=== PATIENT | female | born 1965 | race Caucasian/White ===

== ENCOUNTER 2017-12-05 10:13 | Inpatient (IN) | payer BC ==
[~2017-12-05] VITALS: Ht 157.5 cm; Wt 91.6 kg
[2017-12-05 10:23] VITALS: BP 158/77
[2017-12-05] MEDS ORDERED: METF500T PO (10:29)
[2017-12-05] MEDS ORDERED: METR250T2 PO (10:29)
[2017-12-05] MEDS ORDERED: CIPR500T4 PO (10:29)
[2017-12-05] MEDS ORDERED: LEVO0.1331 PO (10:29)
--- NOTE | 2017-12-05 10:30 | NUR ---
52F BIB FAMILY C/O LLQ PAIN, PRESSURE/THROBBING, RADIATES TO LEFT BUTTOCKS, 05/03 X 4 DAYS; PT STATES WAS SEEN AT [facility]RGENT [facility]ARE WEDNESDAY, DX WITH DIVERTICULUTIS, TAKING FLAGYL 500MG AND CIPRO, BUT PATIENT STATES PAIN HAS NOT IMPROVED; PT C/O DIARRHEA SINCE WEDNESDAY, WITH ONE EPISODE OF DIARRHEA TODAY, BUT STATES NO NAUSEA OR VOMITING AT THIS TIME; ABDOMEN SOFT, NON-TENDER, ACTIVE BOWEL SOUNDS X 4 QUADRANTS; PT AA&OX4, BL LUNG SOUNDS CLEAR, RR EVEN/UNLABORED, SKIN IS WARM/DRY/INTACT WITH EVEN AND STEADY GAIT; PT RESTING IN BED WITH HOB ELEVATED AND IN LOWEST POSITION; POSITIONED FOR COMFORT; ER MD MADE AWARE OF STATUS. WILL CONTINUE TO MONITOR.
[2017-12-05] MEDS ORDERED: NACL 0.9% 1,000 ML IV ONE ×2 (10:31→12:15)
[2017-12-05] MEDS ORDERED: ONDANSETRON 4 MG/2 ML VIAL IVP ONE (10:35)
[2017-12-05] MEDS ORDERED: MORPHINE SULFATE 4 MG/ML SYR IVP ONE (10:35)
--- NOTE | 2017-12-05 10:37 | NUR ---
ER MD DR. CALLAWAY EVALUATING PT AT BEDSIDE.
[2017-12-05 10:51] LABS: BASOPHILS # (AUTO) 0.3 K/uL (0.00-0.22); BASOPHILS % (AUTO) 1.7 % (0.0-2.0); EOSINOPHILS # (AUTO) 0.4 K/uL (0-0.4); EOSINOPHILS % (AUTO) 2.3 % (0.0-4.0); HEMATOCRIT 42.9 % (36-48); HEMOGLOBIN 14.1 g/dL (12.0-16.0); LYMPHOCYTES # (AUTO) 1.6 K/uL (2.5-16.5); LYMPHOCYTES % (AUTO) 10.5 % (20.5-51.1); MEAN CORPUSCULAR HEMOGLOBIN 29 pg (27-31); MEAN CORPUSCULAR HGB CONC 33 g/dL (33-37); MEAN CORPUSCULAR VOLUME 89 fL (80-94); MONOCYTES # (AUTO) 0.4 K/uL (0.8-1.0); MONOCYTES % (AUTO) 2.6 % (1.7-9.3); NEUTROPHILS # (AUTO) 12.8 K/uL (1.8-7.7); NEUTROPHILS % (AUTO) 82.9 % (42.2-75.2); PLATELET COUNT (AUTO) 467 K/uL (140-450); RED BLOOD CELL COUNT(AUTO) 4.82 MIL/uL (4.20-5.40); RED CELL DISTRIBUTION WIDTH 12.5 % (11.6-13.7); WHITE BLOOD COUNT (AUTO) 15.5 K/uL (4.8-10.8)
[2017-12-05 10:51] LABS: APPEARANCE,URINE HAZY (CLEAR); BILIRUBIN,URINE NEGATIVE (NEGATIVE); BLOOD, URINE NEGATIVE (NEGATIVE); COLOR,URINE YELLOW (YELLOW); LEUKOCYTE ESTERASE ,URINE TRACE (NEGATIVE); NITRITE, URINE NEGATIVE (NEGATIVE); UGLUCOSE NEGATIVE (NEGATIVE)
[2017-12-05 11:02] LABS: ANION GAP 16.1 (8-16); CARBON DIOXIDE 25.6 mmol/L (21-32); CREATININE 0.8 mg/dL (0.6-1.3); POTASSIUM 3.7 mmol/L (3.5-5.1)
[2017-12-05 11:08] LABS: ALBUMIN 3.4 g/dL (3.4-5.0); TOTAL BILIRUBIN 0.3 mg/dL (0.0-1.0)
[2017-12-05 11:09] LABS: RBC,URINE 0-5 (RARE) /HPF (0-5); WBC,URINE 0-5 (RARE) /HPF (0-5)
--- NOTE | 2017-12-05 11:25 | NUR ---
PT APPEARS TO BE RESTING COMFORTABLY IN BED; RR EVEN/UNLABORED; POSITIONED FOR COMFORT; FAMILY AT BEDSIDE; WILL CONTINUE TO MONITOR.
[2017-12-05] MEDS ORDERED: KETOROLAC 30 MG/ML VIAL IVP ONE (11:35)
[2017-12-05] MEDS ORDERED: LEVOFLOXACIN 750 MG/D5W PREMIX 150 ML IV ONE (12:15)
[2017-12-05] MEDS ORDERED: metroNIDAZOLE 500 MG/NS PREMIX 100 ML IV ONE (12:15)
--- NOTE | 2017-12-05 12:18 | NUR ---
Dr. Sutherland re-evaluating patient at bedside.
[2017-12-05] MEDS ORDERED: NACL 0.9% 1,000 ML IV SCH (12:27)
[2017-12-05] MEDS ORDERED: DOCUSATE SODIUM 100 MG GELCAP PO PRN (12:30)
[2017-12-05] MEDS ORDERED: ONDANSETRON 4 MG/2 ML VIAL IM/IVP PRN (12:30)
--- NOTE | 2017-12-05 12:57 | NUR ---
Dr. Chopra evaluating patient at bedside.
--- NOTE | 2017-12-05 13:00 | NUR ---
Patient will be admitted to care of DR. VILLAFANA. Admited to TELEMETRY. Will go to room 112B. Belongings list completed. Report to MALLY RN AT BEDSIDE. INFORMED MALLY OF MEDICATIONS STILL PENDING FROM ER.
[2017-12-05] MEDS ORDERED: DEXTROSE 50% 50 ML SYR IVP PRN (13:10)
--- NOTE | 2017-12-05 13:30 | NUR ---
RECEIVED PT REPORT FROM ER NURSE. PT IS AMBULATORY, PT IS AAOX4. NO S/S OF ACUTE DISTRESS ON ROOM AIR. IV NOTED ON THE RT AC 20G, PATENT, INTACT AND WITH IV ABX INFUSING WELL. SKIN INTACT. STATES TOLERABLE ABD PAIN OF 3/10, PT STATED SHE HAD DIARRHEA SINCE WED 12/01/17, ABOUT THREE TIMES A DAY. MRSA SCREENING DONE. PATIENT WAS DISCUSSED POC FOR TODAY, PATIENT VERBALIZED UNDERSTANDING. ORIENTED PT TO HOSPITAL ENVIRONMENT, CALL LIGHT WITHIN REACH. BED IN LOW POSITION.
[2017-12-05] MEDS: DEXT 5% / NACL 0.45% 1,000 ML IV SCH ×3 (13:34→23:47)
--- NOTE | 2017-12-05 13:52 | NUR ---
SPOKE WITH LAURO FROM LAB, STATED THAT PT STILL HAS ENOUGH URINE FROM ED TO RUN FOR UDS.
[2017-12-05 14:27] LABS: BARBITURATE, URINE NEG. ng/ml (NEG <=200); BENZODIAZEPINE, URINE NEG. ng/mL (NEG <=200); CANNABINOID, URINE NEG. ng/mL (NEG <=50); COCAINE, URINE NEG. ng/mL (NEG <=300); OPIATE, URINE NEG. ng/mL (NEG <=2000); PHENCYCLIDINE SCREEN,URINE NEG. ng/mL (NEG <=25)
[2017-12-05 14:36] LABS: CHOL/HDL RATIO 3.7 (1-4.5); FREE T4 (FREE THYROXINE) 1.32 ng/dL (0.76-1.46); MAGNESIUM 1.9 mg/dL (1.8-2.4); PHOSPHORUS 2.8 mg/dL (2.5-4.9); THYROID STIMULATING HORMONE 1.31 uIU/mL (0.34-3.74)
[2017-12-05 14:43] VITALS: BP 152/91
--- NOTE | 2017-12-05 14:50 | NUR ---
DR MAHER HAS SEEN THE PT. MIGHT CONSIDER SX ON , DEPENDS ON PT'S CONDITION.
[2017-12-05 16:00] VITALS: BP 142/83
--- NOTE | 2017-12-05 16:00 | NUR ---
DENIES PAIN AT THIS TIME. BLOOD SUGAR CHECK 114
[2017-12-05] MEDS: BLOOD GLUCOSE MONITORING 1 DEV DEV FS SCH ×2 (16:30→20:31)
[2017-12-05] MEDS ORDERED: metFORMIN 500 MG TAB PO SCH (17:00)
--- NOTE | 2017-12-05 19:30 | NUR ---
ENDORSE PT TO FACTORY HAND RN. PT IN STABLE CONDITION.
--- NOTE | 2017-12-05 19:30 | NUR ---
RECEIVED PT AWAKE TALKING ON THE PHONE, VITAL SIGNS STABLE, TOLERABLE ABDOMINAL PAIN 3/10, ENCOURAGE TO CALL WHEN PAIN GET WORST, MAINTAINED ON NPO, IVF INFUSING WELL, PLAN OF CARE DISCUSSED, SAFETY MEASURES IN PLACE, CALL LIGHT WITHIN REACH.
[2017-12-05 20:00] VITALS: BP 114/87
[2017-12-05] MEDS ORDERED: PIPERACILLIN/TAZOBACTAM 3.375 GM VIAL IV ONE (20:01)
[2017-12-05] MEDS: PIPER/TAZO 3.375GM/D5W PREMIX 50 ML IV SCH (20:07)
[2017-12-05] MEDS: MORPHINE SULFATE 2 MG/ML SYR IVP PRN ×2 (20:27→23:40)
--- NOTE | 2017-12-05 21:00 | NUR ---
BLOOD SUGAR CHECKED WITH 143 RESULT, DUE IV ANTIBIOTIC INFUSING WELL, ALL NEEDS ATTENDED.
[2017-12-05] MEDS: metroNIDAZOLE 500 MG/NS PREMIX 100 ML IV SCH (21:09)
[2017-12-06] VITALS: BP 142/80
[2017-12-06] MEDS: ACETAMINOPHEN 325 MG TAB PO PRN (00:47)
--- NOTE | 2017-12-06 01:00 | NUR ---
PT STILL AWAKE, OFFERED TO GET AN ORDER FOR SLEEPING PILL BUT PT REFUSED, COMPLAINING OF HEADACHE, TYLENOL PO GIVEN WITH SIP OF WATER, MONITORED CLOSELY.
[2017-12-06 04:00] VITALS: BP 125/75
[2017-12-06] MEDS ORDERED: PIPERACILLIN/TAZOBACTAM 3.375 GM VIAL IV ONE (04:13)
[2017-12-06] MEDS: PIPER/TAZO 3.375GM/D5W PREMIX 50 ML IV SCH ×3 (04:32→21:00)
[2017-12-06] MEDS: DEXT 5% / NACL 0.45% 1,000 ML IV SCH ×3 (05:15→21:46)
[2017-12-06] MEDS: metroNIDAZOLE 500 MG/NS PREMIX 100 ML IV SCH ×3 (05:21→21:51)
--- NOTE | 2017-12-06 05:40 | NUR ---
AM LABS DRAWN, BLOOD SUGAR CHECKED WITH 145 RESULT, IVF OF D5 1/2 NS AT 125 ML/H ON-GOING.
[2017-12-06 06:21] LABS: BASOPHILS # (AUTO) 0.5 K/uL (0.00-0.22); BASOPHILS % (AUTO) 3.3 % (0.0-2.0); EOSINOPHILS # (AUTO) 0.3 K/uL (0-0.4); EOSINOPHILS % (AUTO) 2.1 % (0.0-4.0); HEMATOCRIT 37.9 % (36-48); HEMOGLOBIN 12.5 g/dL (12.0-16.0); LYMPHOCYTES # (AUTO) 1.7 K/uL (2.5-16.5); LYMPHOCYTES % (AUTO) 12.2 % (20.5-51.1); MEAN CORPUSCULAR HEMOGLOBIN 30 pg (27-31); MEAN CORPUSCULAR HGB CONC 33 g/dL (33-37); MEAN CORPUSCULAR VOLUME 90 fL (80-94); MONOCYTES # (AUTO) 0.8 K/uL (0.8-1.0); MONOCYTES % (AUTO) 5.5 % (1.7-9.3); NEUTROPHILS # (AUTO) 10.5 K/uL (1.8-7.7); NEUTROPHILS % (AUTO) 76.9 % (42.2-75.2); PLATELET COUNT (AUTO) 398 K/uL (140-450); RED BLOOD CELL COUNT(AUTO) 4.23 MIL/uL (4.20-5.40); RED CELL DISTRIBUTION WIDTH 12.4 % (11.6-13.7)
[2017-12-06] MEDS: LEVOTHYROXINE 0.112 MG, LEVOTHYROXINE 0.025 MG PO SCH ×2 (06:21)
--- NOTE | 2017-12-06 06:25 | NUR ---
DUE PO SYNTHROID GIVEN WITH SIP OF WATER, TOLERABLE PAIN AT THIS TIME 01/01, NO EPISODE OD DIARRHEA NOTED, IVF INFUSING WELL, MONITORED CLOSELY.
[2017-12-06] MEDS: BLOOD GLUCOSE MONITORING 1 DEV DEV FS SCH ×4 (06:37→20:58)
[2017-12-06 06:58] LABS: ANION GAP 11.5 (8-16); CARBON DIOXIDE 28.1 mmol/L (21-32); CREATININE 0.7 mg/dL (0.6-1.3); POTASSIUM 3.6 mmol/L (3.5-5.1)
[2017-12-06 07:11] LABS: MAGNESIUM 1.8 mg/dL (1.8-2.4); PHOSPHORUS 3.2 mg/dL (2.5-4.9)
[2017-12-06 07:12] LABS: WHITE BLOOD COUNT (AUTO) 13.8 K/uL (4.8-10.8)
--- NOTE | 2017-12-06 07:20 | NUR ---
RECEIVED PATIENT REPORT AT BEDSIDE FROM NIGHTSHIFT NURSE. PATIENT IS WAKING UP AT THIS TIME. PATIENT IS A&OX4. PATIENT DOES NOT COMPLAIN OF ANY PAIN AT THIS TIME. PATIENT IS IN SEMI-FOWLERS POSITION. UPDATED BOARD AND LOWERED BED. INSTRUCTED PATIENT TO CALL IF SHE NEEDS HELP WITH TOILETING. WILL CONTINUE TO MONITOR PATIENT.
--- NOTE | 2017-12-06 07:30 | NUR ---
PT AWAKE, NO SIGNS OF DISTRESS, REPORT GIVEN TO AGNES VELÁSQUEZ FOR CONTINUITY OF CARE.
[2017-12-06 08:00] VITALS: BP 153/81
[2017-12-06] MEDS ORDERED: NON-FORMULARY ITEM (Levothyroxine Sodium* (Synthroid*) 0.137 MG) PO SCH (09:00)
[2017-12-06] MEDS ORDERED: LEVOFLOXACIN 750 MG/D5W PREMIX 150 ML IV SCH (09:00)
--- NOTE | 2017-12-06 09:10 | NUR ---
PATIENT HAS BEEN SCREENED AND CATEGORIZED HIGH NUTRITION RISK. PATIENT WILL BE SEEN WITHIN 1-2 DAYS OF ADMISSION. 12/05/18-12/06/[address]
[2017-12-06] MEDS: LACTOBACILLUS RHAMNOSUS GG 1 EACH CAP PO SCH (09:36)
[2017-12-06 10:38] LABS: PROTHROMBIN TIME 10.1 secs (10.8-13.4)
--- NOTE | 2017-12-06 11:30 | NUR ---
PATIENT IS AWAKE WATCHING TELEVISION. PATIENT DOES NOT COMPLAIN OF PAIN. WILL CONTINUE TO MONITOR PATIENT.
--- NOTE | 2017-12-06 11:52 | NUR ---
CM NOTE PER RN SOCIAL WORK BROWN, SHE SPOKE WITH SIERRA OF [facility]# [phone] WHO SAID THERE IS NO ASSIGNED CARD GRADER YET BUT TO SEND REVIEWS TO [phone], REF# [id number]. INITIAL REVIEW FAXED TO [facility] [phone] # [phone].
[2017-12-06 12:57] VITALS: BP 166/89
[2017-12-06] MEDS: HYDROcodone/APAP 7.5/325 MG 1 TAB PO PRN ×2 (12:57→19:38)
--- NOTE | 2017-12-06 13:00 | NUR ---
PATIENT IS ON THE PHONE AT THIS TIME. PATIENT DOES NOT COMPLAIN OF PAIN. PATIENT SHOWS NO SIGNS OF RESPIRATORY DISTRESS OR RESPIRATORY DEPRESSION. WILL CONTINUE TO MONITOR PATIENT.
[2017-12-06] MEDS: INSULIN LISPRO SLIDING SCALE 100 UNITS/ML VIAL SUBQ PRN (13:03)
[2017-12-06] MEDS ORDERED: ENALAPRILAT 2.5 MG/2 ML VIAL IVP SCH (13:19)
--- NOTE | 2017-12-06 15:25 | NUR ---
PATIENT BLOOD PRESSURE IS 166/89, [address] DIAL IS AWARE OF PATIENT'S CONDITION. AWAITING DR'S ORDERS.
--- NOTE | 2017-12-06 15:47 | NUR ---
12/06/2017 RD INITIAL ASSESSMENT COMPLETED PLEASE REFER TO NUTRITION ASSESSMENT UNDER CARE ACTIVITY FOR ESTIMATED NUTRITIONAL NEEDS. CONTINUE NPO MEDICALLY APPROPRIATE ADVANCE DIET TOLERATED TO CCHO 60 GM ONCE PT ABLE TO TOLERATE PO INTAKE RD TO FOLLOW-UP IN 2-3 DAYS PATIENT IS HIGH RISK. [address], RD
[2017-12-06 16:00] VITALS: BP 138/78
--- NOTE | 2017-12-06 19:20 | NUR ---
GAVE REPORT TO NIGHTSHIFT NURSE AT BEDSIDE. PATIENT IS IN STABLE CONDITION.
--- NOTE | 2017-12-06 19:21 | NUR ---
PATIENT REPORT RECEIVED FROM MORNING NURSE AT BEDSIDE. PATIENT IS AWAKE, ALERT AND ORIENTED. NO SIGNS AND SYMPTOMS OF DISTRESS NOTED. PATIENT COMPLAINS OF 6/10 ABDOMINAL PAIN. WILL MEDICATE ORDERED. IV SITE NOTED ON RIGHT AC, IVF INFUSING WELL. PLAN OF CARE DISCUSSED WITH PATIENT. PATIENT VERBALIZED UNDERSTANDING. BED IN LOWEST POSITION, SIDE RAILS UP AND CALL LIGHT WITHIN REACH. WILL CONTINUE TO MONITOR.
--- NOTE | 2017-12-06 20:30 | NUR ---
PATIENT ASKING WEATHER SHE IS GETTING A PROCEDURE DONE TOMORROW. SPOKE TO DR. VELAZCO. DR. VELAZCO WENT TO GO AND SPEAK TO THE PATIENT. Addendum: 12/07/17 at 0141 by No Martinez RN *WHETHER
--- NOTE | 2017-12-06 21:30 | NUR ---
MEDICATION EDUCATION GIVEN. PATIENT VERBALIZED UNDERSTANDING. ADMINISTERED SCHEDULED MEDICATION ORDERED. WILL CONTINUE TO MONITOR.
--- NOTE | 2017-12-06 23:00 | NUR ---
CHECKED ON PATIENT. PATIENT IS ASLEEP. NO SIGNS AND SYMPTOMS OF DISTRESS NOTED. BREATHING EVEN AND UNLABORED. WILL CONTINUE TO MONITOR.
--- NOTE | 2017-12-07 01:40 | NUR ---
CHECKED ON PATIENT. PATIENT IS ASLEEP. NO SIGNS AND SYMPTOMS OF DISTRESS NOTED. BREATHING EVEN AND UNLABORED. WILL CONTINUE TO MONITOR.
[2017-12-07 04:00] VITALS: BP 127/85
[2017-12-07] MEDS: PIPER/TAZO 3.375GM/D5W PREMIX 50 ML IV SCH (04:00)
[2017-12-07] MEDS: HYDROcodone/APAP 7.5/325 MG 1 TAB PO PRN ×2 (04:33→20:42)
[2017-12-07] MEDS: DEXT 5% / NACL 0.45% 1,000 ML IV SCH ×3 (05:15→22:13)
[2017-12-07] MEDS: metroNIDAZOLE 500 MG/NS PREMIX 100 ML IV SCH ×3 (05:46→20:41)
[2017-12-07] MEDS: LEVOTHYROXINE 0.112 MG, LEVOTHYROXINE 0.025 MG PO SCH ×2 (05:49)
[2017-12-07] MEDS: INSULIN LISPRO SLIDING SCALE 100 UNITS/ML VIAL SUBQ PRN ×2 (06:17→20:53)
[2017-12-07 06:21] LABS: T4 (THYROXINE) 10.6 ug/dL (4.5-12.0)
[2017-12-07 06:30] LABS: HEMATOCRIT 37.1 % (36-48); HEMOGLOBIN 12.3 g/dL (12.0-16.0); MEAN CORPUSCULAR HEMOGLOBIN 30 pg (27-31); MEAN CORPUSCULAR HGB CONC 33 g/dL (33-37); MEAN CORPUSCULAR VOLUME 90 fL (80-94); PLATELET COUNT (AUTO) 428 K/uL (140-450); RED BLOOD CELL COUNT(AUTO) 4.14 MIL/uL (4.20-5.40); RED CELL DISTRIBUTION WIDTH 12.6 % (11.6-13.7); WHITE BLOOD COUNT (AUTO) 14.8 K/uL (4.8-10.8)
[2017-12-07 07:08] LABS: EOSINOPHILS % (MANUAL) 3 % (0-4); LYMPHOCYTES % (MANUAL) 20 % (20-46); MONOCYTES % (MANUAL) 7 % (5-12)
--- NOTE | 2017-12-07 07:10 | NUR ---
PATIENT REPORT GIVEN TO MORNING NURSE FOR CONTINUITY OF CARE. PATIENT IS IN STABLE CONDITION.
--- NOTE | 2017-12-07 07:11 | NUR ---
RECEIVED REPORT FROM SLUBBER FRAME CHANGER RN. PATIENT IS AAOX4, NO SIGNS AND SYMPTOMS OF ACUTE DISTRESS NOTED AT THIS TIME. PATIENT IV TO THE RIGHT AC 20G, INFUSING D5 1/2 NS AT 125 ML/HR. SITE IS CLEAN DRY PATENT AND INTACT. DISCUSSED PLAN OF CARE WITH PATIENT AND SHE VERBALIZED UNDERSTANDING. BED IN LOWEST POSITION, SIDE RAILS UP X2, CALL LIGHT PLACED WITHIN REACH. WILL CONTINUE TO MONITOR.
[2017-12-07] MEDS: BLOOD GLUCOSE MONITORING 1 DEV DEV FS SCH ×5 (07:30→21:24)
[2017-12-07 07:50] LABS: CARBON DIOXIDE 26.4 mmol/L (21-32); CREATININE 0.7 mg/dL (0.6-1.3); POTASSIUM 3.4 mmol/L (3.5-5.1)
[2017-12-07 07:58] LABS: MAGNESIUM 2.1 mg/dL (1.8-2.4); PHOSPHORUS 3.3 mg/dL (2.5-4.9)
[2017-12-07 08:00] VITALS: BP 140/83
--- NOTE | 2017-12-07 09:01 | NUR ---
CM NOTE CONCURRENT REVIEW FAXED TO [facility] [phone] # [phone]. Addendum: 12/07/17 at 0920 by Leah Henriquez CM PER K[place] OF [facility]# [phone] OPTION 5, THE DINKEY ENGINE FIRER IS AUDIE Cain BUT THEY CANNOT PROVIDE HER CONTACT NUMBER BUT TO SEND REVIEWS TO FAX# [phone]. Addendum: 12/07/17 at 1421 by Leah Henriquez CM RECEIVED CALL FROM VALENTIN Cain AND SHE SAID SHE IS THE ASSIGNED DINKEY ENGINE FIRER AND HER CONTACT # [phone] FAX# [phone]
[2017-12-07] MEDS: LACTOBACILLUS RHAMNOSUS GG 1 EACH CAP PO SCH (09:11)
[2017-12-07] MEDS: LISINOPRIL 10 MG TAB PO SCH (09:12)
[2017-12-07] MEDS: LEVOFLOXACIN 750 MG/D5W PREMIX 150 ML IV SCH (12:00)
--- NOTE | 2017-12-07 13:30 | NUR ---
DR ZAYAS IN THE ROOM TALKING WITH PATIENT AND HER . HER HAD A LOT OF QUESTIONS.
[2017-12-07] MEDS: ACETAMINOPHEN 325 MG TAB PO PRN (14:56)
--- NOTE | 2017-12-07 15:30 | NUR ---
RECEIVED REPORT FROM AGNES ORTEGA. PT IS AWAKE AND ORIENTED. INTRODUCED MYSELF AND UPDATED THE BOARD. SHE WANTED HER LINENS CHANGED. PT BACK IN BED COMFORTABLE AND ABX INFUSING. WILL CONTINUE TO MONITOR PT.
--- NOTE | 2017-12-07 18:25 | NUR ---
PT RESTING COMFORTABLY. ATE DINNER, WATCHING TV. NO SIGNS OF DISTRESS. WILL CONTINUE TO MONITOR PT.
--- NOTE | 2017-12-07 19:10 | NUR ---
ENDORSED PT TO THE BODY BUILDER APPRENTICE NURSE. PT IN STABLE CONDITION.
--- NOTE | 2017-12-07 19:11 | NUR ---
PATIENT REPORT RECEIVED AT BEDSIDE FROM MORNING NURSE. PATIENT IS AWAKE, ALERT AND ORIENTED. NO SIGNS AND SYMPTOMS OF DISTRESS NOTED. IV SITE NOTED ON RIGHT AC, IVF INFUSING WELL. PLAN OF CARE DISCUSSED WITH PATIENT. PATIENT VERBALIZED UNDERSTANDING. BED IN LOWEST POSITION, SIDE RAILS UP AND CALL LIGHT WITHIN REACH. WILL CONTINUE TO MONITOR.
[2017-12-07 20:00] VITALS: BP 136/76
--- NOTE | 2017-12-07 22:00 | NUR ---
CHECKED ON PATIENT. PATIENT IS ASLEEP. NO SIGNS AND SYMPTOMS OF DISTRESS NOTED. BREATHING EVEN AND UNLABORED. WILL CONTINUE TO MONITOR.
--- NOTE | 2017-12-08 01:00 | NUR ---
CHECKED ON PATIENT. PATIENT IS ASLEEP. NO SIGNS AND SYMPTOMS OF DISTRESS NOTED. BREATHING EVEN AND UNLABORED. WILL CONTINUE TO MONITOR.
[2017-12-08 04:00] VITALS: BP 130/74
--- NOTE | 2017-12-08 04:00 | NUR ---
CHECKED ON PATIENT. PATIENT IS ASLEEP. NO SIGNS AND SYMPTOMS OF DISTRESS NOTED. BREATHING EVEN AND UNLABORED. WILL CONTINUE TO MONITOR.
[2017-12-08] MEDS: metroNIDAZOLE 500 MG/NS PREMIX 100 ML IV SCH ×2 (04:35→12:28)
[2017-12-08] MEDS: DEXT 5% / NACL 0.45% 1,000 ML IV SCH (05:15)
[2017-12-08] MEDS: LEVOTHYROXINE 0.112 MG, LEVOTHYROXINE 0.025 MG PO SCH ×2 (06:13)
[2017-12-08] MEDS: HYDROcodone/APAP 7.5/325 MG 1 TAB PO PRN ×2 (06:19→15:25)
[2017-12-08] MEDS: BLOOD GLUCOSE MONITORING 1 DEV DEV FS SCH ×2 (06:44→12:16)
--- NOTE | 2017-12-08 07:15 | NUR ---
PATIENT REPORT GIVEN TO MORNING NURSE AT BEDSIDE. PATIENT IS IN STABLE CONDITION.
[2017-12-08 07:16] LABS: ANION GAP 14.5 (8-16); CARBON DIOXIDE 25.8 mmol/L (21-32); CREATININE 0.7 mg/dL (0.6-1.3); POTASSIUM 3.3 mmol/L (3.5-5.1)
--- NOTE | 2017-12-08 07:16 | NUR ---
REPORT RECEIVED FROM PRODUCTION PLANNING MANAGER NURSE AT BEDSIDE FOR CONTINUITY OF CARE. PATIENT IS RESTING COMFORTABLY IN BED. INTRODUCED MYSELF AND UPDATED THE BOARD. NO SIGNS AND SYMPTOMS OF DISTRESS NOTED. IV SITE ON RIGHT AC 20G, WITH D5 1/2 NS INFUSING WELL AT 125 ML/HR. PATIENT STATED HEADACHE, REQUESTED MEDICATION FOR IT. WILL MEDICATE. SAFETY PRECAUTIONS IN PLACE, BED IN LOWEST POSITION, SIDE RAILS UP AND CALL LIGHT WITHIN REACH. WILL CONTINUE TO MONITOR PATIENT.
[2017-12-08 07:32] LABS: MAGNESIUM 1.9 mg/dL (1.8-2.4); PHOSPHORUS 3.3 mg/dL (2.5-4.9)
[2017-12-08 07:35] LABS: RED BLOOD CELL COUNT(AUTO) 4.36 MIL/uL (4.20-5.40); WHITE BLOOD COUNT (AUTO) 14.3 K/uL (4.8-10.8)
[2017-12-08 07:36] LABS: BASOPHILS # (AUTO) 0.1 K/uL (0.00-0.22); BASOPHILS % (AUTO) 0.5 % (0.0-2.0); EOSINOPHILS # (AUTO) 0.2 K/uL (0-0.4); EOSINOPHILS % (AUTO) 1.7 % (0.0-4.0); HEMATOCRIT 38.5 % (36-48); LYMPHOCYTES # (AUTO) 1.9 K/uL (2.5-16.5); LYMPHOCYTES % (AUTO) 13.1 % (20.5-51.1); MEAN CORPUSCULAR HEMOGLOBIN 30 pg (27-31); MEAN CORPUSCULAR HGB CONC 34 g/dL (33-37); MEAN CORPUSCULAR VOLUME 88 fL (80-94); MONOCYTES % (AUTO) 6.9 % (1.7-9.3); NEUTROPHILS # (AUTO) 11.1 K/uL (1.8-7.7); NEUTROPHILS % (AUTO) 77.8 % (42.2-75.2); PLATELET COUNT (AUTO) 440 K/uL (140-450); RED CELL DISTRIBUTION WIDTH 13.2 % (11.6-13.7)
[2017-12-08 08:00] VITALS: BP 141/88
--- NOTE | 2017-12-08 08:16 | NUR ---
CM NOTE CONCURRENT REVIEW FAXED TO [facility] [phone] CM AUDIE Cain PH# [phone]
[2017-12-08] MEDS: LISINOPRIL 10 MG TAB PO SCH (08:30)
[2017-12-08] MEDS: ACETAMINOPHEN 325 MG TAB PO PRN (08:30)
[2017-12-08] MEDS: LACTOBACILLUS RHAMNOSUS GG 1 EACH CAP PO SCH (08:30)
--- NOTE | 2017-12-08 08:30 | NUR ---
MORNING MEDICATIONS GIVEN, PATIENT TOLERATED THEM WELL. SAFETY PRECAUTIONS IN PLACE, CALL LIGHT WITHIN REACH, WILL CONTINUE TO MONITOR PATIENT. Addendum: 12/08/17 at 1938 by Dex Horton RN DUPLICATE POST.
--- NOTE | 2017-12-08 08:30 | NUR ---
ADMINISTERED MORNING MEDICATIONS AND TYLENOL PRN FOR HEADACHE. PATIENT TOLERATED THEM WELL. NO SIGNS OF DISTRESS OR DISCOMFORT NOTED. SAFETY PRECAUTION IN PLACE, CALL LIGHT WITHIN REACH. WILL CONTINUE TO MONITOR PATIENT.
[2017-12-08] MEDS ORDERED: PSYLLIUM 12.2 GM/PKT PO SCH (09:00)
--- NOTE | 2017-12-08 10:45 | NUR ---
PATIENT AND REQUESTING TO SPEAK TO MD. MD WAS INFORMED, WILL AWAIT NEW INFORMATION.SAFETY PRECAUTIONS IN PLACE, CALL LIGHT WITHIN REACH, WILL CONTINUE TO MONITOR PATIENT.
[2017-12-08] MEDS: INSULIN LISPRO SLIDING SCALE 100 UNITS/ML VIAL SUBQ PRN (12:18)
[2017-12-08] MEDS: LEVOFLOXACIN 750 MG/D5W PREMIX 150 ML IV SCH (12:27)
--- NOTE | 2017-12-08 12:30 | NUR ---
PATIENT RESTING AND EATING LUNCH. NO SIGNS OF DISTRESS OR SOB NOTED, SAFETY PRECAUTIONS IN PLACE, CALL LIGHT WITHIN REACH, WILL CONTINUE TO MONITOR PATIENT.
[2017-12-08] MEDS ORDERED: POTASSIUM CHLORIDE 10 MEQ TABER PO SCH (14:00)
[2017-12-08] MEDS ORDERED: ACET-2869 PO (14:53)
[2017-12-08] MEDS ORDERED: METPCK PO (14:53)
[2017-12-08] MEDS ORDERED: METR500T1 PO (14:53)
[2017-12-08] MEDS ORDERED: LACT10CA PO (14:53)
[2017-12-08] MEDS ORDERED: LEVO750T2 PO (14:53)
[2017-12-08] MEDS ORDERED: GLUC-805 FS (14:53)
[2017-12-08] MEDS ORDERED: METF500T PO (14:53)
[2017-12-08] MEDS ORDERED: DOCU-299 PO (14:53)
[2017-12-08] MEDS ORDERED: LISI10TA11 PO (14:53)
[2017-12-08] MEDS ORDERED: LEVO0.1331 PO (14:53)
[2017-12-08] MEDS ORDERED: IBUP-2213 PO (14:53)
--- NOTE | 2017-12-08 14:55 | NUR ---
PATIENT RESTING IN BED, NO SIGNS OF DISTRESS OR SOB NOTED. SAFETY PRECAUTIONS IN PLACE, CALL LIGHT WITHIN REACH, WILL CONTINUE TO MONITOR PATIENT.
[2017-12-08 16:00] VITALS: BP 155/95
--- NOTE | 2017-12-08 16:30 | NUR ---
BLOOD SUGAR 118, VS WITHIN NORMAL LIMITS, DISCHARGE INSTRUCTIONS AND EDUCATION GIVEN. IV REMOVED, IV CATHETER INTACT, ID BANDS REMOVED. PATIENT IS CHANGING INTO HER CLOTHES TO GET READY FOR DISCHARGE WITH HER .
--- NOTE | 2017-12-08 17:17 | NUR ---
PATIENT AMBULATED OFF THE FLOOR WITH AND RN BY SIDE. PATIENT IN STABLE CONDITION.
--- NOTE | 2017-12-09 08:03 | NUR ---
CM NOTE FAXED DISCHARGE SUMMARY TO [facility] [phone] ATTN: AUDIE Cain PH# [phone]. RECEIVED FAX TO SEND DISCHARGE INSTRUCTIONS TO [facility] FAX# [phone] WHEN DISCHARGED. FAXED DISCHARGE INSTRUCTIONS TO [facility] FAX# [phone].
== END 2017-12-08 17:17 | disposition home or self-care (01) | DRG 391 ==
LOC: MED 10:13 → MTU 12:27
PROVIDERS: ADMIT Student in an Organized Health Care Education/Training Program; ATTEND Student in an Organized Health Care Education/Training Program
DX: K57.20 Diverticulitis of large intestine with perforation and abscess without bleeding (principal); N17.0 Acute kidney failure with tubular necrosis; E44.1 Mild protein-calorie malnutrition; N39.0 Urinary tract infection, site not specified; E03.9 Hypothyroidism, unspecified; E78.5 Hyperlipidemia, unspecified; E66.9 Obesity, unspecified; I10 Essential (primary) hypertension; E11.65 Type 2 diabetes mellitus with hyperglycemia; D72.829 Elevated white blood cell count, unspecified; Z68.36 Body mass index [BMI] 36.0-36.9, adult; K80.20 Calculus of gallbladder without cholecystitis without obstruction; E66.01 Morbid (severe) obesity due to excess calories
CPT/HCPCS: 36415; 71045; 80048; 80053; 80305; 81001; 81025; 82150; 82948; 83036; 83690; 83735; 83880; 84100; 84436; 84439; 84443; 84479; 84484; 85025; 85610; 85730; 87081; 93005; 93925; 93970; 96361; 96365; 96375; 99285; J1815; J1885; J1956; J2270; J2405; J2543; J3490; J7030; Q0092